=== PATIENT | male | born 1965 | race Caucasian/White ===

== ENCOUNTER 2019-07-15 16:55 | Emergency (ER) | payer OTHER, SELFPAY ==
[2019-07-15 17:18] VITALS: BP 155/95; PULSE 84; RESP 16; TEMP 36.7; O2SAT 98
--- NOTE | 2019-07-15 17:33 | ED.EYEPROB ---
HPI - Eye Problem General Chief complaint: Eye Problems Stated complaint: eye problems Time Seen by Provider: 07/15/19 17:23 Source: patient and RN notes reviewed Mode of arrival: ambulatory Limitations: no limitations History of Present Illness HPI Narrative: Patient presents today complaint of a foreign body sensation to his left eye since 1529. Patient was grinding some metal when he noted a foreign body. Denies photophobia. Patient angry and unwilling to answer any further questions in HPI regarding vision. No OTC interventions prior to arrival. chief complaint: foreign body Related Data Allergies Allergy/AdvReac Type Severity Reaction Status Date / Time No Known Allergies Allergy Verified 07/15/19 17:06 Review of Systems Review of Systems: Narrative: CONSTITUTIONAL: Denies body aches, fever, chills, or sweats. EYES: Denies visual changes, redness, or discharge.+ Left eye foreign body sensation ENT: Denies rhinorrhea, congestion, sore throat, or otalgia. CARDIOVASCULAR: Denies chest pain, palpitations, or edema. RESPIRATORY: Denies cough or dyspnea. GASTROINTESTINAL: Denies abdominal pain, nausea, vomiting, or diarrhea. GENITOURINARY: Denies dysuria or hematuria. SKIN: Denies rash, itching, or wounds. MUSCULOSKELETAL: Denies back pain, joint pain, or myalgia. NEUROLOGIC: Denies headache, numbness, tingling, or weakness. PSYCH: Denies depression or anxiety. PMFSH Comments At time of signature, I have reviewed and agree with nursing past medical, surgical, social and family history unless otherwise noted. Please see nursing chart for further information. There is no relevant family history pertinent to the presenting complaint Exam Narrative: Exam Narrative: GENERAL: Well-appearing, well-nourished, and in no acute distress. HEAD: Normocephalic, atraumatic. EYES: EOMI. PERRL. No foreign body noted in left eye. Corneal abrasion noted to lateral iris area. Right eye normal. Lids and lashes normal bilaterally. ENT: Mucous membranes pink and moist. NECK: Normal AROM. CHEST: No respiratory distress. EXTREMITIES: Normal range of motion. No edema. SKIN: Warm, dry, no rash. Capillary refill normal. Normal skin turgor. NEURO: No focal deficits. Alert and oriented x3. Gait steady. PSYCH: Normal affect. No signs of depression or anxiety. Course Vital Signs Vital signs: Vital Signs Temperature 98.0 F 07/15/19 17:18 Pulse Rate 84 07/15/19 17:18 Respiratory Rate 16 07/15/19 17:18 Blood Pressure 155/95 H 07/15/19 17:18 Pulse Oximetry 98 07/15/19 17:18 Temperature 98.0 F 07/15/19 17:18 Pulse Rate 84 07/15/19 17:18 Respiratory Rate 16 07/15/19 17:18 Blood Pressure 155/95 H 07/15/19 17:18 Pulse Oximetry 98 07/15/19 17:18 Reviewed. Pt has been instructed to follow up with his PCP regarding his elevated blood pressure today. Procedures Other Procedure Procedure 1: Other Procedure: Left eye was anesthetized with 1 drop of tetracaine and anesthesia was achieved. The eye was flushed with eye wash. Lid was inverted and examined. Moistened Qtip was used to sweep underneath the upper eyelid with 0 foreign bodies resulting. Cornea was dyed with fluorescein and 1 abrasion noted to the lateral iris. Pt tolerated procedure well. MDM - Eye Problem Differential Diagnosis Differential diagnosis: Likely corneal abrasion, conjunctivitis and other (Foreign body) Critical Care Time Critical Care Time Critical Care Time: No Discharge Plan Discharge Clinical Impression: Corneal abrasion Qualifiers: Encounter type: initial encounter Laterality: left Qualified Code(s): S05.02XA - Injury of conjunctiva and corneal abrasion without foreign body, left eye, initial encounter Patient Disposition: Home, Self-Care Condition: Stable Instructions: Corneal Abrasion (DC) Additional Instructions: You do have an abrasion on your left cornea, but no foreign body was found. Anabel
--- NOTE | 2019-07-15 17:44 | PC.NURSE ---
4515 eye exam set up at bedside. unable to do visual exam due to inability to open eye d/t pain.
== END 2019-07-15 17:38 | disposition home or self-care (01) ==
PROVIDERS: Emergency Provider Nurse Practitioner; PCP Family Medicine
DX: S05.02XA Injury of conjunctiva and corneal abrasion without foreign body, left eye, initial encounter (principal); W22.8XXA Striking against or struck by other objects, initial encounter
CPT/HCPCS: 65205; 99213; A9270; G0463